=== PATIENT | male | born 1965 | race Caucasian/White ===

== ENCOUNTER → 2018-11-01 | Outpatient (CLI) | payer OTHER ==
[~2018-11-01] MED LIST: ASPI325 PO; BISO5 PO; BISOPROLOL PO; CYCL10 PO; Cipro500 MG PO; FISH1000 PO; Flagyl500 MG PO; GABA300 PO; Hydrochloroth12.5 MG PO; LEVFLO500 PO; LOVA40 PO; MECL12.5 PO; Norco 5-325 Ta1 EACH PO; OXYACE5T PO; PROM25 PO
[2018-11-01 12:01] LABS: Protein, Urine Quantitative 15.7 mg/dL (0.0-11.9)
[2018-11-01 12:07] LABS: Microalbumin, Urine Quant. 10.3 mg/L (0.000-20.000)
== END | disposition home or self-care (01) ==
LOC: LAB 08:20 → LAB SHORT 08:20 → LAB FUT 10-29 07:20
PROVIDERS: Internal Medicine Nephrology
DX: N18.2 Chronic kidney disease, stage 2 (mild) (principal); D63.1 Anemia in chronic kidney disease; N25.81 Secondary hyperparathyroidism of renal origin; N40.1 Benign prostatic hyperplasia with lower urinary tract symptoms; E55.9 Vitamin D deficiency, unspecified; E78.00 Pure hypercholesterolemia, unspecified; R76.9 Abnormal immunological finding in serum, unspecified; R94.5 Abnormal results of liver function studies; R94.6 Abnormal results of thyroid function studies
CPT/HCPCS: 81050; 82043; 82570; 84156

== ENCOUNTER 2019-04-09 02:49 | Inpatient (IN) | payer OTHER ==
[~2019-04-09] VITALS: Ht 172.7 cm; Wt 98.6 kg
[2019-04-09 04:45] LABS: BASOPHILS ABSOLUTE AUTO 0.05 K/mm3 (0.00-0.23); BASOPHILS PERCENT AUTO 0 % (0-2); EOSINOPHILS ABSOLUTE AUTO 0.07 K/mm3 (0.00-0.68); EOSINOPHILS PERCENT AUTO 1 % (0-6); Hematocrit 43.9 % (37.0-53.0); Hemoglobin 14.8 g/dL (13.5-17.5); IMMATURE GRAN ABSOLUTE AUTO 0.06 K/mm3 (0.00-0.10); IMMATURE GRAN PERCENT AUTO 0 % (0-1); LYMPHOCYTES ABSOLUTE AUTO 1.39 K/mm3 (0.84-5.20); LYMPHOCYTES PERCENT AUTO 10 % (21-46); MONOCYTES ABSOLUTE AUTO 1.34 K/mm3 (0.16-1.47); MONOCYTES PERCENT AUTO 9 % (4-13); Mean Corpuscular HGB 30.3 pg (26.0-34.0); Mean Corpuscular HGB Conc 33.7 g/dL (31.5-36.5); Mean Corpuscular Volume 90 fL (80-100); Mean Platelet Volume 9.3 fL (9.1-12.4); NEUTROPHILS ABSOLUTE AUTO 11.28 K/mm3 (1.96-9.15); NEUTROPHILS PERCENT AUTO 80 % (41-73); Platelet Count 453 K/mm3 (150-400); RDW Coefficient Variation 12.1 % (11.7-14.2); RDW Standard Deviation 40.1 fL (35.1-46.3); Red Blood Cell Count 4.88 M/mm3 (4.30-5.90); White Blood Cell Count 14.19 K/mm3 (4.00-11.30)
[2019-04-09 05:02] LABS: Alanine Aminotransfer (ALT/SGP 19 U/L (12-78); Albumin, Blood 2.8 g/dL (3.4-5.0); Albumin/Globulin Ratio 0.5 (0.8-1.8); Alk Phos 73 U/L (50-136); Anion Gap 12 mmol/L (6-16); Aspartate Aminotrans (AST/SGOT 24 U/L (12-37); Bilirubin, Total 0.7 mg/dL (0.1-1.0); Blood Urea Nitrogen 14 mg/dL (8-24); Bun/Creatinine Ratio 16.9 (12.0-20.0); CO2, Blood 22 mmol/L (21-32); Calcium, Blood 9.3 mg/dL (8.5-10.1); Chloride, Blood 100 mmol/L (98-108); Creatinine, Blood 0.83 mg/dL (0.60-1.20); Globulin, Blood 5.3 g/dL (2.2-4.0); Glomerular Filtration Rate >60 (60-); Glucose, Blood 114 mg/dL (70-99); Potassium, Blood 3.9 mmol/L (3.5-5.5); Sodium, Blood 134 mmol/L (136-145); Total Protein, Blood 8.1 g/dL (6.4-8.2)
--- NOTE | 2019-04-09 07:59 | NUR ---
ASSUMED CARE PT IN BED COMPLAINING OF LOWER BACK PAIN AND ABDOMINAL PAIN THAT IS "COMING BACK". PT IS AFEBRILE. BP 135/74, AND SEEMS TO BE IN NO APPARENT DISTRESS. STILL WAITING ON PLACEMENT. BED LOW AND LOCKED.
[2019-04-09] MEDS ORDERED: Bisoprolol-Hct1 EAC1 PO (11:58)
[2019-04-09] MEDS ORDERED: Balsalazide Di750 MG PO (14:40)
[2019-04-10 05:28] LABS: BASOPHILS ABSOLUTE AUTO 0.05 K/mm3 (0.00-0.23); BASOPHILS PERCENT AUTO 0 % (0-2); EOSINOPHILS ABSOLUTE AUTO 0.08 K/mm3 (0.00-0.68); EOSINOPHILS PERCENT AUTO 1 % (0-6); Hemoglobin 12.4 g/dL (13.5-17.5); IMMATURE GRAN ABSOLUTE AUTO 0.06 K/mm3 (0.00-0.10); IMMATURE GRAN PERCENT AUTO 1 % (0-1); LYMPHOCYTES ABSOLUTE AUTO 1.26 K/mm3 (0.84-5.20); LYMPHOCYTES PERCENT AUTO 11 % (21-46); MONOCYTES ABSOLUTE AUTO 1.27 K/mm3 (0.16-1.47); MONOCYTES PERCENT AUTO 11 % (4-13); Mean Corpuscular HGB 30.2 pg (26.0-34.0); Mean Corpuscular HGB Conc 32.6 g/dL (31.5-36.5); Mean Corpuscular Volume 93 fL (80-100); Mean Platelet Volume 9.8 fL (9.1-12.4); NEUTROPHILS ABSOLUTE AUTO 8.69 K/mm3 (1.96-9.15); NEUTROPHILS PERCENT AUTO 76 % (41-73); Platelet Count 361 K/mm3 (150-400); RDW Coefficient Variation 12.3 % (11.7-14.2); White Blood Cell Count 11.41 K/mm3 (4.00-11.30)
[2019-04-10 06:01] LABS: Alanine Aminotransfer (ALT/SGP 17 U/L (12-78); Albumin, Blood 2.2 g/dL (3.4-5.0); Albumin/Globulin Ratio 0.5 (0.8-1.8); Alk Phos 57 U/L (50-136); Anion Gap 5 mmol/L (6-16); Aspartate Aminotrans (AST/SGOT 19 U/L (12-37); Bilirubin, Total 0.5 mg/dL (0.1-1.0); Blood Urea Nitrogen 6 mg/dL (8-24); Bun/Creatinine Ratio 7.6 (12.0-20.0); CO2, Blood 27 mmol/L (21-32); Calcium, Blood 8.3 mg/dL (8.5-10.1); Chloride, Blood 102 mmol/L (98-108); Creatinine, Blood 0.79 mg/dL (0.60-1.20); Globulin, Blood 4.4 g/dL (2.2-4.0); Glomerular Filtration Rate >60 (60-); Glucose, Blood 110 mg/dL (70-99); Potassium, Blood 3.9 mmol/L (3.5-5.5); Sodium, Blood 134 mmol/L (136-145); Total Protein, Blood 6.6 g/dL (6.4-8.2)
--- NOTE | 2019-04-10 06:51 | NUR ---
SHIFT SUMMARY PT IS A 53 Y/O MALE, ADMITTED FOR A SIGMOID ABSCESS. HE IS A&O X 4, AND INDEPENDENT IN THE ROOM. NO COMPLAINTS OF ACUTE PAIN, NAUSEA OR SOB. VITAL SIGNS STABLE. PT REMAINED ON D5+1/2NS+K @ 125 ML/HR. PT SLEPT WELL THROUGH THE NIGHT. NO OTHER ACUTE CHANGES IN PT CONDITION NOTED. WILL CONTINUE TO MONITOR AND TREAT PER EMAR UNTIL HAND OFF TO DAY SHIFT RN.
--- NOTE | 2019-04-10 15:51 | NUR ---
PT IS A/OX3, PLEASANT AND COOPERATIVE, THE PT IS UP IND IN HIS ROOM, THE PT SO FAR TODAY HAS DENIED SIGNIFICANT ABD PAIN, THE PT DENIES NAUSEA, PT CONTINUES ON CLEAR LIQUID DIET AND APPERS TO BE TOLERATING IT WELL, PT APPEARS TO BE BREATHING EASILY ON RA AT THIS TIME, THE PT WAS UP AND INTO THE SHOWER TODAY, PT STARTED ON PPN THIS AFTERNOON, CALL LIGHT IN REACH, WILL CONTINUE TO MONITOR AND ASSESS FOR CHANGES
[2019-04-11 04:50] LABS: BASOPHILS ABSOLUTE AUTO 0.05 K/mm3 (0.00-0.23); BASOPHILS PERCENT AUTO 1 % (0-2); EOSINOPHILS ABSOLUTE AUTO 0.11 K/mm3 (0.00-0.68); EOSINOPHILS PERCENT AUTO 1 % (0-6); Hematocrit 38.1 % (37.0-53.0); Hemoglobin 12.7 g/dL (13.5-17.5); IMMATURE GRAN ABSOLUTE AUTO 0.04 K/mm3 (0.00-0.10); IMMATURE GRAN PERCENT AUTO 0 % (0-1); LYMPHOCYTES ABSOLUTE AUTO 1.11 K/mm3 (0.84-5.20); LYMPHOCYTES PERCENT AUTO 12 % (21-46); MONOCYTES ABSOLUTE AUTO 0.91 K/mm3 (0.16-1.47); MONOCYTES PERCENT AUTO 10 % (4-13); Mean Corpuscular HGB 30.5 pg (26.0-34.0); Mean Corpuscular HGB Conc 33.3 g/dL (31.5-36.5); Mean Corpuscular Volume 91 fL (80-100); Mean Platelet Volume 9.2 fL (9.1-12.4); NEUTROPHILS ABSOLUTE AUTO 6.75 K/mm3 (1.96-9.15); NEUTROPHILS PERCENT AUTO 75 % (41-73); Platelet Count 375 K/mm3 (150-400); RDW Coefficient Variation 12.1 % (11.7-14.2); Red Blood Cell Count 4.17 M/mm3 (4.30-5.90); White Blood Cell Count 8.97 K/mm3 (4.00-11.30)
[2019-04-11 05:07] LABS: Triglycerides 77 mg/dL (30-160)
--- NOTE | 2019-04-11 06:24 | NUR ---
SHIFT SUMMARY PT IS A 53 Y/O MALE, ADMITTED FOR A SIGMOID ABSCESS. HE IS A&O X 4, INDEPENDENT IN THE ROOM. PT DENIED ANY COMPLAINTS OF PAIN, NAUSEA OR SOB. VITAL SIGNS STABLE. PT IS ON PPN AT 105 ML/HR. BLOOD SUGARS STABLE. NO ACUTE CHANGES IN PT CONDITION NOTED. WILL CONTINUE TO MONITOR AND TREAT PER EMAR UNTIL HAND OFF TO DAY SHIFT RN.
--- NOTE | 2019-04-11 16:31 | NUR ---
PT IS A/OX3, PLEASANT AND COOPERATIVE, THE PT IS UP IND IN HIS ROOM, THE PT TODAY WAS STARTED ON A REGULAR DIET AND SO FAR HAS TOLERATED THAT WELL, THE PT DEINIES ANY PAIN OR N/V, PT HAS BEEN UP WALKING WITH HIS FAMILY, APPERAS TO BE BREATHING EASILY ON RA, CALL LIGHT IN REACH, WILL CONTINUE TO MONITOR AND ASSESS FOR CHANGES
[2019-04-12 05:01] LABS: BASOPHILS ABSOLUTE AUTO 0.05 K/mm3 (0.00-0.23); BASOPHILS PERCENT AUTO 1 % (0-2); EOSINOPHILS ABSOLUTE AUTO 0.16 K/mm3 (0.00-0.68); EOSINOPHILS PERCENT AUTO 2 % (0-6); Hematocrit 41.2 % (37.0-53.0); Hemoglobin 13.4 g/dL (13.5-17.5); IMMATURE GRAN ABSOLUTE AUTO 0.05 K/mm3 (0.00-0.10); IMMATURE GRAN PERCENT AUTO 1 % (0-1); LYMPHOCYTES ABSOLUTE AUTO 1.38 K/mm3 (0.84-5.20); LYMPHOCYTES PERCENT AUTO 16 % (21-46); MONOCYTES ABSOLUTE AUTO 0.94 K/mm3 (0.16-1.47); MONOCYTES PERCENT AUTO 11 % (4-13); Mean Corpuscular HGB Conc 32.5 g/dL (31.5-36.5); Mean Corpuscular Volume 92 fL (80-100); Mean Platelet Volume 9.3 fL (9.1-12.4); NEUTROPHILS ABSOLUTE AUTO 6.31 K/mm3 (1.96-9.15); NEUTROPHILS PERCENT AUTO 71 % (41-73); Platelet Count 420 K/mm3 (150-400); RDW Coefficient Variation 12.4 % (11.7-14.2); RDW Standard Deviation 42.5 fL (35.1-46.3); Red Blood Cell Count 4.46 M/mm3 (4.30-5.90); White Blood Cell Count 8.89 K/mm3 (4.00-11.30)
[2019-04-12 05:18] LABS: Anion Gap 6 mmol/L (6-16); Blood Urea Nitrogen 10 mg/dL (8-24); Bun/Creatinine Ratio 11.9 (12.0-20.0); CO2, Blood 27 mmol/L (21-32); Calcium, Blood 8.8 mg/dL (8.5-10.1); Chloride, Blood 102 mmol/L (98-108); Creatinine, Blood 0.84 mg/dL (0.60-1.20); Glomerular Filtration Rate >60 (60-); Glucose, Blood 91 mg/dL (70-99); Potassium, Blood 3.8 mmol/L (3.5-5.5); Sodium, Blood 135 mmol/L (136-145)
--- NOTE | 2019-04-12 05:22 | NUR ---
SHIFT SUMMARY ADMITTED FOR SIGMOID ABSCESS. FULL CODE. PLAN IS FOR REPEAT CT SCAN SUNDAY, FOLLOWED BY DRAIN OF ABSCESS IF INDICATED. DR FLEMING IS CONSULT FOR GI. DR PEACOCK IS GI FOR THIS WEEKEND IF EMERGENCY ARISES. PT IS A&O X4, TOLERATING REGULAR DIET, INDEPENDENT IN ROOM, RA. IV ANTIBIOTICS ARE SCHEDULED. HX: ULCERATIVE COLLITIS, HTN, BACK PAIN, VERTIGO.
--- NOTE | 2019-04-12 13:06 | NUR ---
SHIFT SUMMARY PT IS A/O X 4 WITH NO C/O PAIN. PT IS UP IND IN HIS ROOM AND AMBULATES TO TOILET. PT DENIES ANY NAUSEA AND IS AFEBRILE. PT IS SCHEDULED FOR CT SUNDAY WITH A POSSIBLE PROCEDURE AFTER CT. PT IS ABLE TO MAKE HIS NEEDS KNOWN AND CALLS FOR HELP WHEN NEEDED. CALL LIGHT IS IN REACH.
--- NOTE | 2019-04-12 14:00 | NUR ---
ASSUMED CARE AT 1400 FROM ISABELLE RÍOS. PT RESTING COMFORTABLY, NO WANTS OR NEEDS AT THIS TIME.
--- NOTE | 2019-04-12 19:34 | NUR ---
RECEIVED BEDSIDE REPORT FROM MICHOACANO PULIDO. PT LYING IN BED ON RIGHT SIDE. STATES HE'S PRETTY GOOD. RESP E/U ON RA. SALINE LOCKED. NO TELE. NO COMPLAINTS. PT MOVES INDEPENDENTLY IN ROOM. WILL MONITOR AND PROVIDE CARE T/O SHIFT. CALL LT IN REACH.
--- NOTE | 2019-04-12 22:05 | NUR ---
PT RESTING COMFORTABLY AT THIS TIME. CALL LT IN REACH.
--- NOTE | 2019-04-13 00:35 | NUR ---
PT STATES HE'S DOING GOOD. NO NEEDS AT THIS TIME. CALL LT IN REACH.
--- NOTE | 2019-04-13 04:05 | NUR ---
PT SITTING ON SIDE OF BED. STATES HE WANTED TO LET THIS NURSE KNOW THAT HE HAD WOKE UP AND FELT SWEATY, HEAD AND CHEST. PT ALSO STATES THAT HE FEELS FINE, DOESN'T FEEL AND DIFFERENT. VITAL SIGNS STABLE. WILL MONITOR. CALL LT IN REACH.
--- NOTE | 2019-04-13 04:13 | NUR ---
SHIFT SUMMARY: A/O. INDEPENDENT IN RM. ON RA. SALINE LOCKED. NOT ON TELE. VSS T/O SHIFT. MEDICATED ONCE WITH 500 MG NAPROXEN FOR BACK PAIN WITH GOOD PAIN RELIEF. PT RESTED WELL T/O SHIFT. NO REPORTS OF ABDOMINAL PAIN. ABDOMEN SOFT WITH SOME TENDERNESS WHEN PALPATED. PT REPORTS WAKING UP THIS MORNING FEELING SWEATY; HEAD AND CHEST, WITH NO OTHER SYMPTOMS. NO ACUTE CHANGES. WILL CONTINUE TO MONITOR AND PROVIDE CARE UNTIL SHIFT REPORT.
[2019-04-13 04:50] LABS: BASOPHILS ABSOLUTE AUTO 0.05 K/mm3 (0.00-0.23); BASOPHILS PERCENT AUTO 1 % (0-2); EOSINOPHILS ABSOLUTE AUTO 0.26 K/mm3 (0.00-0.68); EOSINOPHILS PERCENT AUTO 3 % (0-6); Hematocrit 39.6 % (37.0-53.0); Hemoglobin 13.1 g/dL (13.5-17.5); IMMATURE GRAN ABSOLUTE AUTO 0.04 K/mm3 (0.00-0.10); IMMATURE GRAN PERCENT AUTO 1 % (0-1); LYMPHOCYTES ABSOLUTE AUTO 1.59 K/mm3 (0.84-5.20); LYMPHOCYTES PERCENT AUTO 19 % (21-46); MONOCYTES ABSOLUTE AUTO 0.91 K/mm3 (0.16-1.47); MONOCYTES PERCENT AUTO 11 % (4-13); Mean Corpuscular HGB 30.3 pg (26.0-34.0); Mean Corpuscular HGB Conc 33.1 g/dL (31.5-36.5); Mean Corpuscular Volume 92 fL (80-100); Mean Platelet Volume 9.2 fL (9.1-12.4); NEUTROPHILS ABSOLUTE AUTO 5.45 K/mm3 (1.96-9.15); NEUTROPHILS PERCENT AUTO 66 % (41-73); Platelet Count 414 K/mm3 (150-400); RDW Coefficient Variation 12.4 % (11.7-14.2); Red Blood Cell Count 4.32 M/mm3 (4.30-5.90)
[2019-04-13 05:09] LABS: Anion Gap 6 mmol/L (6-16); Blood Urea Nitrogen 12 mg/dL (8-24); Bun/Creatinine Ratio 13.8 (12.0-20.0); CO2, Blood 25 mmol/L (21-32); Calcium, Blood 8.8 mg/dL (8.5-10.1); Chloride, Blood 106 mmol/L (98-108); Creatinine, Blood 0.87 mg/dL (0.60-1.20); Glomerular Filtration Rate >60 (60-); Glucose, Blood 100 mg/dL (70-99); Sodium, Blood 137 mmol/L (136-145)
--- NOTE | 2019-04-13 19:22 | NUR ---
PT LYING BED ON LEFT SIDE. RESP E/U ON RA. DENIES PAIN, SOB, NAUSEA. ABD SOFT NONTENDER. BT PRESENT. STATES DOING GOOD, WANTS TO TAKE A NAP FOR A COUPLE OF HOURS. WILL CONTINUE TO MONITOR AND PROVIDE CARE T/O SHIFT. CALL LT IN REACH.
--- NOTE | 2019-04-13 21:56 | NUR ---
PT RESTING COMFORTABLY ON LEFT SIDE. CALL LT IN REACH.
--- NOTE | 2019-04-14 04:02 | NUR ---
SHIFT SUMMARY: NO COMPLAINTS. PT RESTED WELL T/O SHIFT. NO ABDOMINAL PAIN, NAUSEA, SOB. ABD SOFT AND NONTENDER. NO PRN'S GIVEN. NO ACUTE CHANGES. WILL CONTINUE TO MONITOR AND PROVIDE CARE UNTIL SHIFT REPORT.
[2019-04-14 04:47] LABS: BASOPHILS ABSOLUTE AUTO 0.07 K/mm3 (0.00-0.23); BASOPHILS PERCENT AUTO 1 % (0-2); EOSINOPHILS PERCENT AUTO 4 % (0-6); Hematocrit 40.3 % (37.0-53.0); Hemoglobin 13.4 g/dL (13.5-17.5); IMMATURE GRAN ABSOLUTE AUTO 0.04 K/mm3 (0.00-0.10); IMMATURE GRAN PERCENT AUTO 0 % (0-1); LYMPHOCYTES ABSOLUTE AUTO 1.63 K/mm3 (0.84-5.20); LYMPHOCYTES PERCENT AUTO 15 % (21-46); MONOCYTES ABSOLUTE AUTO 0.98 K/mm3 (0.16-1.47); MONOCYTES PERCENT AUTO 9 % (4-13); Mean Corpuscular HGB 30.5 pg (26.0-34.0); Mean Corpuscular HGB Conc 33.3 g/dL (31.5-36.5); Mean Corpuscular Volume 92 fL (80-100); Mean Platelet Volume 9.1 fL (9.1-12.4); NEUTROPHILS ABSOLUTE AUTO 7.49 K/mm3 (1.96-9.15); NEUTROPHILS PERCENT AUTO 71 % (41-73); Platelet Count 434 K/mm3 (150-400); RDW Coefficient Variation 12.5 % (11.7-14.2); RDW Standard Deviation 41.8 fL (35.1-46.3); White Blood Cell Count 10.61 K/mm3 (4.00-11.30)
[2019-04-14 05:05] LABS: Anion Gap 5 mmol/L (6-16); Blood Urea Nitrogen 9 mg/dL (8-24); Bun/Creatinine Ratio 12.8 (12.0-20.0); CO2, Blood 25 mmol/L (21-32); Calcium, Blood 8.6 mg/dL (8.5-10.1); Chloride, Blood 106 mmol/L (98-108); Creatinine, Blood 0.71 mg/dL (0.60-1.20); Glomerular Filtration Rate >60 (60-); Glucose, Blood 103 mg/dL (70-99); Potassium, Blood 4.3 mmol/L (3.5-5.5); Sodium, Blood 136 mmol/L (136-145)
--- NOTE | 2019-04-14 10:11 | NUR ---
Pt gave me permission to help with his care 04/14/19
[2019-04-14 14:34] LABS: International Normalized Ratio 1.17; Prothrombin Time Results 12.4 Sec (9.7-11.5)
--- NOTE | 2019-04-14 18:18 | NUR ---
PT AOX4 AND COOPERATIVE OF CARE. PT DENIED PAIN START OF SHIFT FOR ABDOMEN AND WAS COMFORTABLE ALL DAY. PT TAKEN TO PROCEDURE FOR DRAIN IN L [place] AND NOW REPORTED A 8 OUT OF 10 PAIN AND WAS TREATED PER EMAR. PT HAD PROCEDURE DONE JUST AFTER 14OO. PT WAS DOING WELL AFTER ARRIVING BACK TO ROOM AND REQUESTED FOOD IMMEDIATELY. PT UP INDEPENDENT IN ROOM. DRAIN AREA LOOKS CLEAN NO NOTED BLEEDING VERY MINIMAL DRAINAGE AT THIS TIME SEEN. WILL CONTINUE TO MONITOR.
[2019-04-15 05:00] LABS: BASOPHILS ABSOLUTE AUTO 0.04 K/mm3 (0.00-0.23); BASOPHILS PERCENT AUTO 1 % (0-2); EOSINOPHILS ABSOLUTE AUTO 0.37 K/mm3 (0.00-0.68); EOSINOPHILS PERCENT AUTO 5 % (0-6); Hematocrit 40.4 % (37.0-53.0); Hemoglobin 12.9 g/dL (13.5-17.5); IMMATURE GRAN ABSOLUTE AUTO 0.04 K/mm3 (0.00-0.10); IMMATURE GRAN PERCENT AUTO 1 % (0-1); LYMPHOCYTES ABSOLUTE AUTO 1.38 K/mm3 (0.84-5.20); LYMPHOCYTES PERCENT AUTO 18 % (21-46); MONOCYTES ABSOLUTE AUTO 0.79 K/mm3 (0.16-1.47); MONOCYTES PERCENT AUTO 10 % (4-13); Mean Corpuscular HGB 29.9 pg (26.0-34.0); Mean Corpuscular HGB Conc 31.9 g/dL (31.5-36.5); Mean Corpuscular Volume 94 fL (80-100); Mean Platelet Volume 9.4 fL (9.1-12.4); NEUTROPHILS ABSOLUTE AUTO 5.22 K/mm3 (1.96-9.15); NEUTROPHILS PERCENT AUTO 67 % (41-73); Platelet Count 439 K/mm3 (150-400); RDW Coefficient Variation 12.5 % (11.7-14.2); RDW Standard Deviation 43.4 fL (35.1-46.3); Red Blood Cell Count 4.32 M/mm3 (4.30-5.90); White Blood Cell Count 7.84 K/mm3 (4.00-11.30)
--- NOTE | 2019-04-15 06:22 | NUR ---
SHIFT SUMMARY AOX4. VSS. DENIES N/V OR DYSPNEA. REPORTS 5/10 PAIN IN LLQ ABD WHERE SIGMOID ABCESS DRAIN IS LOCATED. 40 ML SANGUINOUS OUTPUT FROM URESIL DRAIN THIS SHIFT. ABD TENDER TO TOUCH, TOLERATING REGULAR DIET WELL, ACTIVE BT A4Q. IND IN ROOM & ANTICIPATING DC TODAY. CALL LIGHT IN REACH. WCTM.
[2019-04-15] MEDS ORDERED: LEVO750 PO (11:12)
[2019-04-15] MEDS ORDERED: METR500 PO (11:13)
[2019-04-15] MEDS ORDERED: MIRALAX119 GM PO (11:14)
--- NOTE | 2019-04-15 12:15 | NUR ---
DISCHARGE INSTRUCTIONS COMPLETED AND DISCUSSED WITH PT EXPRESSING UNDERSTANDING. EDUCATION GIVEN TO PT ON HOW TO EMPTY AND MAINTAIN DRAINAGE TUBE/BAG. DISCUSSED WRITING DOWN HOW MUCH IS EMPTIED AND WHEN TO BE TAKEN TO [facility] OFFICE ON FOLLOW UP. TO CURB VIA W/C.
[2019-04-15] MEDS ORDERED: Norco 5-325 Ta1 EACH PO (12:49)
== END 2019-04-15 12:16 | disposition home or self-care (01) | DRG 392 ==
LOC: ER 02:49 → ERHOLD 08:16 → MEDS 14:05
PROVIDERS: Emergency Medicine; Family Medicine; Student in an Organized Health Care Education/Training Program; Surgery; ADMIT Hospitalist
DX: K57.40 Diverticulitis of both small and large intestine with perforation and abscess without bleeding (principal); I10 Essential (primary) hypertension; E88.09 Other disorders of plasma-protein metabolism, not elsewhere classified; E78.5 Hyperlipidemia, unspecified; G89.29 Other chronic pain; M54.9 Dorsalgia, unspecified; Z88.0 Allergy status to penicillin; Z87.891 Personal history of nicotine dependence; Z79.82 Long term (current) use of aspirin
CPT/HCPCS: 36415; 49405; 74176; 74177; 80048; 80053; 82947; 83605; 83690; 84478; 85025; 85610; 85651; 85730; 86140; 87040; 88108; 96365; 96367; 96375; 99285-25; A9270-GY; J0610; J0696; J1170; J1956; J3475; J3480; J7050; J7120; J7131; Q9967

== ENCOUNTER → 2020-09-15 | Outpatient (CLI) | payer OTHER ==
[~2020-09-15] MED LIST changes: +ATOR20; +BISOPROLOL-HCT1 EACH PO; +Balsalazide Di750 MG PO; +Bisoprolol-Hct1 EAC1 PO; +LEVO750 PO; +METR500 PO; +MIRALAX119 GM PO
[2020-09-15 10:38] LABS: BASOPHILS ABSOLUTE AUTO 0.06 K/mm3 (0.00-0.23); BASOPHILS PERCENT AUTO 1 % (0-2); EOSINOPHILS ABSOLUTE AUTO 0.19 K/mm3 (0.00-0.68); EOSINOPHILS PERCENT AUTO 3 % (0-6); Hematocrit 47.1 % (37.0-53.0); Hemoglobin 15.4 g/dL (13.5-17.5); IMMATURE GRAN ABSOLUTE AUTO 0.01 K/mm3 (0.00-0.10); IMMATURE GRAN PERCENT AUTO 0 % (0-1); LYMPHOCYTES ABSOLUTE AUTO 1.35 K/mm3 (0.84-5.20); LYMPHOCYTES PERCENT AUTO 20 % (21-46); MONOCYTES ABSOLUTE AUTO 0.53 K/mm3 (0.16-1.47); MONOCYTES PERCENT AUTO 8 % (4-13); Mean Corpuscular HGB Conc 32.7 g/dL (31.5-36.5); Mean Corpuscular Volume 92 fL (80-100); Mean Platelet Volume 9.9 fL (9.1-12.4); NEUTROPHILS ABSOLUTE AUTO 4.63 K/mm3 (1.96-9.15); NEUTROPHILS PERCENT AUTO 69 % (41-73); Platelet Count 291 K/mm3 (150-400); RDW Coefficient Variation 12.8 % (11.7-14.2); RDW Standard Deviation 43.1 fL (35.1-46.3); Red Blood Cell Count 5.14 M/mm3 (4.30-5.90); White Blood Cell Count 6.77 K/mm3 (4.00-11.30)
[2020-09-15 11:15] LABS: Alanine Aminotransfer (ALT/SGP 36 U/L (12-78); Albumin, Blood 4.2 g/dL (3.4-5.0); Alk Phos 107 U/L (50-136); Anion Gap 6 mmol/L (6-16); Aspartate Aminotrans (AST/SGOT 32 U/L (12-37); Bilirubin, Total 0.6 mg/dL (0.1-1.0); Blood Urea Nitrogen 11 mg/dL (8-24); Bun/Creatinine Ratio 12.6 (12.0-20.0); CO2, Blood 28 mmol/L (21-32); Calcium, Blood 9.7 mg/dL (8.5-10.1); Chloride, Blood 106 mmol/L (98-108); Creatinine, Blood 0.87 mg/dL (0.60-1.20); Globulin, Blood 4.4 g/dL (2.2-4.0); Glomerular Filtration Rate >60 (60-); Glucose, Blood 94 mg/dL (70-99); Sodium, Blood 140 mmol/L (136-145); Total Protein, Blood 8.6 g/dL (6.4-8.2)
== END | disposition home or self-care (01) ==
LOC: LAB 10:30 → LAB SHORT 10:30
PROVIDERS: Family Medicine
DX: R10.9 Unspecified abdominal pain (principal)
CPT/HCPCS: 80053; 85025

== ENCOUNTER → 2023-02-28 | Outpatient (CLI) | payer OTHER ==
[2023-02-28 14:32] LABS: BASOPHILS ABSOLUTE AUTO 0.06 K/mm3 (0.00-0.23); BASOPHILS PERCENT AUTO 1 % (0-2); EOSINOPHILS ABSOLUTE AUTO 0.21 K/mm3 (0.00-0.68); EOSINOPHILS PERCENT AUTO 3 % (0-6); Hematocrit 46.6 % (37.0-53.0); Hemoglobin 15.6 g/dL (13.5-17.5); IMMATURE GRAN ABSOLUTE AUTO 0.01 K/mm3 (0.00-0.10); IMMATURE GRAN PERCENT AUTO 0 % (0-1); LYMPHOCYTES ABSOLUTE AUTO 1.61 K/mm3 (0.84-5.20); LYMPHOCYTES PERCENT AUTO 25 % (21-46); MONOCYTES ABSOLUTE AUTO 0.45 K/mm3 (0.16-1.47); MONOCYTES PERCENT AUTO 7 % (4-13); Mean Corpuscular HGB 31.6 pg (26.0-34.0); Mean Corpuscular HGB Conc 33.5 g/dL (31.5-36.5); Mean Corpuscular Volume 94 fL (80-100); Mean Platelet Volume 9.8 fL (9.1-12.4); NEUTROPHILS ABSOLUTE AUTO 4.15 K/mm3 (1.96-9.15); NEUTROPHILS PERCENT AUTO 64 % (41-73); Platelet Count 265 K/mm3 (150-400); RDW Coefficient Variation 12.7 % (11.7-14.2); RDW Standard Deviation 43.6 fL (35.1-46.3); Red Blood Cell Count 4.94 M/mm3 (4.30-5.90); White Blood Cell Count 6.49 K/mm3 (4.00-11.30)
[2023-02-28 14:45] LABS: Albumin, Blood 3.7 g/dL (3.4-5.0); Bilirubin, Total 0.3 mg/dL (0.1-1.0); Bun/Creatinine Ratio 10.9 (12.0-20.0); Calcium, Blood 9.4 mg/dL (8.5-10.1); Creatinine, Blood 1.01 mg/dL (0.60-1.20); Globulin, Blood 3.6 g/dL (2.2-4.0); Potassium, Blood 3.6 mmol/L (3.5-5.5); Total Protein, Blood 7.3 g/dL (6.4-8.2)
== END | disposition home or self-care (01) ==
LOC: LAB 14:28 → LAB SHORT 14:28
PROVIDERS: Physician Assistant Medical
DX: R10.32 Left lower quadrant pain (principal)
CPT/HCPCS: 80053; 85025

== ENCOUNTER 2023-08-07 08:28 | Day surgery (SDC) | payer OTHER ==
[2023-08-07] VITALS (14 sets, daily range): BP systolic 111–139; BP diastolic 75–95
[~2023-08-07] VITALS: Ht 170.2 cm; Wt 104.5 kg
[~2023-08-07 08:28] MED LIST changes: +ACYC400 PO; -ATOR20; +ATOR20 PO; +Acetaminophen 500 MG Tab PO SCH; +CeFAZolin Sodium 2,000 MG in NS 100 ML IV SCH; +Chlorhexidine Mouth Care 15 ML UDC MT SCH; +Lactated Ringer's 1,000 ML IV SCH; +OxyCODONE HCL 10 MG TABCR PO SCH; +PEPCID20 MG PO; +Ropivacaine 0.5% HCl/Pf 123.125 MG,EPINEPHrine HCL 0.25 MG,Ketorolac Tromethamine 15 MG... INFIL SCH; +TRAZ50 PO; +Tranexamic Acid 100 ML IV SCH
[2023-08-07] MEDS ORDERED: propofoL 60 ML IV ONE (10:13)
[2023-08-07] MEDS ORDERED: Midazolam HCl 1MG / ML 2ML Vial ONE (10:13)
[2023-08-07] MEDS ORDERED: Rocuronium Bromide 10 MG/ML 5ML Injection IV ONE (10:40)
[2023-08-07] MEDS ORDERED: Famotidine 20 MG Tab PO PRN (10:45)
[2023-08-07] MEDS ORDERED: Metoclopramide HCl 5MG / ML 2ML Vial IV PRN (10:50)
[2023-08-07] MEDS ORDERED: Lactated Ringer's 1,000 ML IV SCH (10:50)
[2023-08-07] MEDS ORDERED: Magnesium Hydroxide Conc 10 ML UDC PO PRN (10:50)
[2023-08-07] MEDS ORDERED: Promethazine HCl 25 MG Tab PO PRN (10:50)
[2023-08-07] MEDS ORDERED: Ondansetron HCl 2 MG / ML 2ML Vial IV PRN (10:50)
[2023-08-07] MEDS ORDERED: OxyCODONE HCL 5 MG TAB PO PRN ×2 (10:50)
[2023-08-07] MEDS ORDERED: DiphenhydrAMINE HCL 25 MG Cap PO PRN (10:55)
[2023-08-07] MEDS ORDERED: Bisacodyl 10 MG Supp PR PRN (10:55)
[2023-08-07] MEDS ORDERED: HYDROmorphone HCl/Pf 1MG SYR IV PRN (10:55)
--- NOTE | 2023-08-07 11:10 | NUR ---
PT GLASSES AND DENTURES TAKEN TO PACU FOR SAFEKEEPING. OTHER BELONGINGS UNDERNEATH GURNEY FOR SAFEKEEPING.
[2023-08-07] MEDS ORDERED: Dexamethasone Sod Phos 10 MG/ML 1ML VIAL ONE (11:16)
[2023-08-07] MEDS ORDERED: Ondansetron HCl 2 MG / ML 2ML Vial ONE (11:16)
[2023-08-07] MEDS ORDERED: Ketorolac Tromethamine 30mg Vial ONE (11:16)
[2023-08-07] MEDS ORDERED: HYDROmorphone HCl/Pf 1MG SYR ONE ×2 (11:27→13:08)
[2023-08-07] MEDS ORDERED: Acyclovir 400 MG Tab PO PRN (11:35)
[2023-08-07] MEDS ORDERED: Sugammadex Sodium 200 MG/2ML SDV (100 MG/ML) ONE (11:59)
[2023-08-07] MEDS ORDERED: Ketorolac Tromethamine 15mg Vial IV SCH (12:00)
[2023-08-07] MEDS ORDERED: Percocet 5-3251 EACH PO (15:03)
[2023-08-07] MEDS ORDERED: Aspir 8181 MG PO (15:03)
[2023-08-07] MEDS ORDERED: Acetaminophen 500 MG Tab PO SCH (16:00)
--- NOTE | 2023-08-07 18:21 | NUR ---
SHIFT SUMMARY PT A&OX4, VSS/RA, ZOILA PO, VOIDING, AMB SBA FWW/GB, UP TO CHAIR, PAIN MANAGED, IV ABX PER EMAR, WORKED WITH PHYSICAL THERAPY. WILL REPORT TO ONCOMING NOC RN.
[2023-08-07] MEDS ORDERED: CeFAZolin Sodium 2,000 MG in NS 100 ML IV SCH (19:00)
[2023-08-07] MEDS ORDERED: Docusate Sodium 100 MG Cap PO SCH (21:00)
[2023-08-07] MEDS ORDERED: TraZODone HCl 50 MG Tab PO SCH (21:00)
[2023-08-08 02:12] VITALS: BP 135/81
--- NOTE | 2023-08-08 05:11 | NUR ---
SHIFT SUMMARY LEAH IS A/0X4 ON ASSESSMENT. AQUACEL DRESSING TO R KNEE C/D/I, PAIN WITHING PROPORTION AND MANAGAGED APPROPRIATELY. PT ABLE TO AMBULATE WITH MINIMAL ASSIST. VOIDING APPROPRIATELY. V/S/S. PT WAS AWAKE FOR MUCH OF THE NIGHT. PLAN FOR P/T AND DISCHARGE HOME TODAY.
[2023-08-08 05:25] LABS: BASOPHILS ABSOLUTE AUTO 0.03 K/mm3 (0.00-0.23); BASOPHILS PERCENT AUTO 0 % (0-2); EOSINOPHILS ABSOLUTE AUTO 0.03 K/mm3 (0.00-0.68); EOSINOPHILS PERCENT AUTO 0 % (0-6); Hematocrit 40.3 % (37.0-53.0); Hemoglobin 13.6 g/dL (13.5-17.5); IMMATURE GRAN ABSOLUTE AUTO 0.05 K/mm3 (0.00-0.10); IMMATURE GRAN PERCENT AUTO 0 % (0-1); LYMPHOCYTES ABSOLUTE AUTO 1.45 K/mm3 (0.84-5.20); LYMPHOCYTES PERCENT AUTO 12 % (21-46); MONOCYTES ABSOLUTE AUTO 1.12 K/mm3 (0.16-1.47); MONOCYTES PERCENT AUTO 9 % (4-13); Mean Corpuscular HGB 31.1 pg (26.0-34.0); Mean Corpuscular HGB Conc 33.7 g/dL (31.5-36.5); Mean Corpuscular Volume 92 fL (80-100); Mean Platelet Volume 9.8 fL (9.1-12.4); NEUTROPHILS ABSOLUTE AUTO 9.23 K/mm3 (1.96-9.15); NEUTROPHILS PERCENT AUTO 77 % (41-73); Platelet Count 254 K/mm3 (150-400); RDW Coefficient Variation 12.1 % (11.7-14.2); RDW Standard Deviation 40.8 fL (35.1-46.3); Red Blood Cell Count 4.38 M/mm3 (4.30-5.90); White Blood Cell Count 11.91 K/mm3 (4.00-11.30)
[2023-08-08 05:53] LABS: Bun/Creatinine Ratio 20.1 (12.0-20.0); Calcium, Blood 8.6 mg/dL (8.5-10.1); Creatinine, Blood 0.75 mg/dL (0.60-1.20)
[2023-08-08 08:17] VITALS: BP 128/94
[2023-08-08 08:18] VITALS: BP 127/78
[2023-08-08] MEDS ORDERED: Atorvastatin 40 MG Tab PO SCH (09:00)
[2023-08-08] MEDS ORDERED: Aspirin 81 MG Chew PO SCH (09:00)
[2023-08-08] MEDS ORDERED: HydroCHLOROthiazide 25 mg Tab PO SCH (09:00)
[2023-08-08] MEDS ORDERED: Metoprolol Succinate 50 MG TABCR PO SCH (09:00)
--- NOTE | 2023-08-08 11:11 | NUR ---
DISCHARGE SUMMARY POD1 R TKA, A/X4, VSS, TOLERATING PO, PAIN WELL MANAGED, AQUACELL DRESSING C/D/I WIHT SHAREE WRAP COVERING IT, SENSATION INTACT, CIRCULATION INTACT, ABLE TO WIGGLE TOES AND MOVE ALL EXTREMITIES, IV ACCESS REMOVED WHILE DISCUSSING DC INSTRUCTIONS. DISCUSSED DISCHARGE INSTRUCTIONS INCLUDING HOME CARE, MEDICATIONS, AND FOLLOW UP APPOINTMENTS. NO QUESTIONS AT THIS TIME. ESCORTED OUT VIA WC TO PRIVATE AUTO TO GO HOME.
== END 2023-08-08 11:00 | disposition home or self-care (01) ==
LOC: ORSCMMR 08:28 → ORD 10:00 → SURS 13:21 → ORSCMMR 08-08 11:00
PROVIDERS: Orthopaedic Surgery
PROC: 0SRC0JA Replacement of Right Knee Joint with Synthetic Substitute, Uncemented, Open Approach (ICD-10-PCS; principal; 2023-08-07 10:00)
DX: M17.11 Unilateral primary osteoarthritis, right knee (principal); I10 Essential (primary) hypertension; K21.9 Gastro-esophageal reflux disease without esophagitis; Z68.35 Body mass index [BMI] 35.0-35.9, adult; E78.5 Hyperlipidemia, unspecified; Z79.899 Other long term (current) drug therapy
CPT/HCPCS: 36415; 73560-RT; 80048; 85025; 97110; 97116; 97162; A9270; C1776; J0171; J0690; J0735; J1100; J1170; J1885; J2250; J2405; J2704; J2795; J7120

== ENCOUNTER → 2024-08-27 | Outpatient (CLI) | payer OTHER ==
[~2024-08-27] MED LIST changes: -Acetaminophen 500 MG Tab PO SCH; +Aspir 8181 MG PO; -CeFAZolin Sodium 2,000 MG in NS 100 ML IV SCH; -Chlorhexidine Mouth Care 15 ML UDC MT SCH; -Lactated Ringer's 1,000 ML IV SCH; -OxyCODONE HCL 10 MG TABCR PO SCH; +Percocet 5-3251 EACH PO; -Ropivacaine 0.5% HCl/Pf 123.125 MG,EPINEPHrine HCL 0.25 MG,Ketorolac Tromethamine 15 MG... INFIL SCH; -Tranexamic Acid 100 ML IV SCH
[2024-08-27 07:53] LABS: BASOPHILS ABSOLUTE AUTO 0.08 K/mm3 (0.00-0.23); BASOPHILS PERCENT AUTO 1 % (0-2); EOSINOPHILS ABSOLUTE AUTO 0.30 K/mm3 (0.00-0.68); EOSINOPHILS PERCENT AUTO 5 % (0-6); Hematocrit 48.2 % (37.0-53.0); Hemoglobin 16.0 g/dL (13.5-17.5); IMMATURE GRAN ABSOLUTE AUTO 0.01 K/mm3 (0.00-0.10); IMMATURE GRAN PERCENT AUTO 0 % (0-1); LYMPHOCYTES ABSOLUTE AUTO 1.00 K/mm3 (0.84-5.20); LYMPHOCYTES PERCENT AUTO 16 % (21-46); MONOCYTES ABSOLUTE AUTO 0.54 K/mm3 (0.16-1.47); MONOCYTES PERCENT AUTO 9 % (4-13); Mean Corpuscular HGB Conc 33.2 g/dL (31.5-36.5); Mean Corpuscular Volume 92 fL (80-100); NEUTROPHILS ABSOLUTE AUTO 4.15 K/mm3 (1.96-9.15); NEUTROPHILS PERCENT AUTO 68 % (41-73); NRBC ABSOLUTE 0.00 K/mm3 (0.00-0.02); NRBC Auto 0.0 /100 WBC (0.0-0.2); Platelet Count 267 K/mm3 (150-400); RDW Coefficient Variation 12.5 % (11.7-14.2); RDW Standard Deviation 42.1 fL (35.1-46.3)
[2024-08-27 08:02] LABS: Alanine Aminotransfer (ALT/SGP 33.0 U/L (12-78); Albumin, Blood 4.1 g/dL (3.4-5.0); Albumin/Globulin Ratio 1.1 (0.8-1.8); Anion Gap 12.0 mmol/L (3-11); Aspartate Aminotrans (AST/SGOT 29.0 U/L (12-37); Bilirubin, Total 0.6 mg/dL (0.1-1.0); Blood Urea Nitrogen 13.0 mg/dL (8-24); CO2, Blood 28.0 mmol/L (21-32); Calcium, Blood 9.3 mg/dL (8.5-10.1); Chloride, Blood 104.0 mmol/L (98-108); Creatinine, Blood 1.14 mg/dL (0.60-1.20); Globulin, Blood 3.7 g/dL (2.2-4.0); Glucose, Blood 109.0 mg/dL (70-99); Potassium, Blood 4.0 mmol/L (3.5-5.5); Sodium, Blood 140.0 mmol/L (136-145); Total Protein, Blood 7.8 g/dL (6.4-8.2)
== END | disposition home or self-care (01) ==
LOC: LAB 07:49 → LAB SHORT 07:49
PROVIDERS: Physician Assistant
DX: R10.9 Unspecified abdominal pain (principal)
CPT/HCPCS: 80053; 83690; 85025